=== PATIENT | female | born 1930 | race Caucasian/White ===

== ENCOUNTER 2017-07-16 11:50 | Emergency (ER) | payer MEDICARE, OTHER ==
[2017-07-16 11:57] VITALS: BP 154/77; PULSE 65
[2017-07-16 12:08] VITALS: RESP 14; TEMP 97; O2SAT 100
[2017-07-16 12:29] LABS: BASO % 0.7 % (0.0-2.0); EOS % 0.7 % (0.0-4.0); LYMPH # 1.2 K/uL (1.0-4.3); LYMPH % 17.9 % (20.0-40.0); MEAN CELL VOLUME 95.6 fl (81.0-99.0); MEAN CORPUSCULAR HGB CONC 32.4 g/dL (33.0-37.0); MEAN PLATELET VOLUME 8.1 fl (7.2-11.7); MONO # 0.6 K/uL (0.0-0.8); MONO % 8.8 % (0.0-10.0); NEUT # 4.9 K/uL (1.8-7.0); NEUT % 71.9 % (50.0-75.0); NRBC % 0.1 % (0.0-0.0); RED CELL DISTRIBUTION WIDTH 15.3 % (11.5-14.5); WHITE BLOOD COUNT 6.8 K/uL (4.8-10.8)
--- NOTE | 2017-07-16 12:34 | ED PDOC ---
Syncope/Near Syncope/Dizziness Time Seen by Provider: 07/16/17 11:54 Chief Complaint (Nursing): Dizziness/Lightheaded Chief Complaint (Provider): Dizziness History Per: Patient, EMS History/Exam Limitations: no limitations Onset/Duration Of Symptoms: Sudden Onset (earlier today) Activity At Onset Of Symptoms: Standing Additional Complaint(s): Marisabel is an 86 y/o female who was brought by EMS after bystander noted patient almost passed out, but did not fall. No injury or LOC. Patient states she felt dizzy. Denies chest pain, shortness of breath, and peripheral weakness. Patient denies past medical history. Upon review of records, patient has a history of atrial fibrillation, CHF, and hypertension. PMD: Unknown Past Medical History Reviewed: Historical Data, Nursing Documentation, Vital Signs Vital Signs: Last Vital Signs Temp 97 F L 07/16/17 12:05 Pulse 65 07/16/17 12:05 Resp 14 07/16/17 12:05 BP 154/77 H 07/16/17 12:05 Pulse Ox 100 07/16/17 12:05 - Medical History PMH: Atrial Fibrillation, CHF, HTN, Hypothyroidism - Family History Family History: States: Unknown Family Hx - Immunization History Hx Tetanus Toxoid Vaccination: No Hx Influenza Vaccination: No Hx Pneumococcal Vaccination: No - Home Medications Home Medications: Ambulatory Orders Medication Instructions Recorded Chlorthalidone [Hygroton] 25 mg PO DAILY 09/27/15 Dabigatran [Pradaxa] 75 mg PO DAILY 09/27/15 Docusate [Colace] 100 mg PO DAILY 09/27/15 Levothyroxine [Synthroid] 50 mg PO DAILY 09/27/15 Losartan [Cozaar] 50 mg PO DAILY 09/27/15 Tramadol HCl [Tramadol HCl] 25 mg PO Q4 PRN 09/27/15 amLODIPine [Norvasc] 2.5 mg PO DAILY 09/27/15 - Allergies Allergies/Adverse Reactions: Allergies Allergy/AdvReac Type Severity Reaction Status Date / Time No Known Allergies Allergy Verified 09/27/15 10:06 Review of Systems ROS Statement: Except As Marked, All Systems Reviewed And Found Negative Cardiovascular: Negative for: Chest Pain Respiratory: Negative for: Shortness of Breath Neurological: Positive for: Dizziness, Other (Near syncopal episoder). Negative for: Weakness Physical Exam - Reviewed Nursing Documentation Reviewed: Yes Vital Signs Reviewed: Yes - Physical Exam Appears: Positive for: Non-toxic, No Acute Distress Head Exam: Positive for: ATRAUMATIC, NORMAL INSPECTION, NORMOCEPHALIC Skin: Positive for: Normal Color, Warm, Dry Eye Exam: Positive for: EOMI, Normal appearance, PERRL Neck: Positive for: Normal, Painless ROM, Supple Cardiovascular/Chest: Positive for: Irregularly Irregular (rate moderate) Respiratory: Positive for: Normal Breath Sounds. Negative for: Respiratory Distress Gastrointestinal/Abdominal: Positive for: Normal Exam, Soft. Negative for: Tenderness Back: Positive for: Normal Inspection Extremity: Positive for: Normal ROM, Capillary Refill (< 2 sec). Negative for: Calf Tenderness, Deformity Neurologic/Psych: Positive for: Alert, Oriented (x3). Negative for: Motor/ Sensory Deficits - Laboratory Results Result Diagrams: 07/16/17 12:20 - ECG O2 Sat by Pulse Oximetry: 100 (RA) Pulse Ox Interpretation: Normal Medical Decision Making Medical Decision Making: Time: 12:06 Initial Plan: --EKG --CMP --Troponin I --CBC --PT --CT Head w/o contrast --Pending reevaluation Scribe Attestation: Documented by Victorina Vasquez, acting as a scribe for Pastor Srivastava MD Provider Scribe Attestation: All medical record entries made by the Scribe were at my direction and personally dictated by me. I have reviewed the chart and agree that the record accurately reflects my personal performance of the history, physical exam, medical decision making, and the department course for this patient. I have also personally directed, reviewed, and agree with the discharge instructions and disposition. Disposition - Clinical Impression Clinical Impression: Dizziness, Atrial fibrillation with slow ventricular response - Patient ED Disposition Is Patient to be Admitted: No - Disposition Disposition: Against Medical Advice Disposition Time: 13:16 Condition: FAIR Instructions: Near Syncope (ED), Atrial Fibrillation (ED) Forms: [facility] (B[place]raini) Print Language: WALLISIAN
[2017-07-16 13:00] LABS: ALB/GLOB RATIO 1.5 (1.0-2.1); ALKALINE PHOSPHATASE 93 U/L (38-126); ALT/SGPT 29 U/L (9-52); AST/SGOT 29 U/L (14-36); BILIRUBIN,TOTAL 0.8 mg/dl (0.2-1.3); BLOOD UREA NITROGEN 24 mg/dl (7-17); CALCIUM 9.5 mg/dL (8.4-10.2); CARBON DIOXIDE 28 mmol/L (22-30); CHLORIDE 107 mmol/L (98-107); GFR AFRICAN-AMERICAN > 60; GLUCOSE,RANDOM 87 mg/dL (65-105); SODIUM 145 mmol/l (132-148); TOTAL PROTEIN 6.9 G/DL (6.3-8.2)
[2017-07-16 13:17] LABS: POTASSIUM 3.2 MMOL/L (3.6-5.0)
--- NOTE | 2017-07-18 11:20 | CARD ---
APPROVED REPORT EKG Measurement Heart [id number] <Conclusion> Atrial fibrillation with premature ventricular or aberrantly conducted complexes Abnormal ECG
== END 2017-07-16 13:20 | disposition left against medical advice (07) ==
LOC: H.ER 11:50
DX: R42 Dizziness and giddiness (principal); I48.0 Paroxysmal atrial fibrillation; E03.9 Hypothyroidism, unspecified; I11.0 Hypertensive heart disease with heart failure; Z79.01 Long term (current) use of anticoagulants